=== PATIENT | female | born 1975 | race Hispanic/Latino ===

== ENCOUNTER → 2023-10-17 | Emergency (ER) | payer OTHER ==
[~2023-10-17] VITALS: Ht 160 cm; Wt 90.7 kg
[~2023-10-17] MED LIST: NAPR-1180 PO; ONDA4TAB10 PO
[2023-10-17 19:58] VITALS: BP 148/97; PULSE 87; RESP 19; O2SAT 100
[2023-10-17 20:40] LABS: HCG,QUALITATIVE URINE NEGATIVE (NEGATIVE)
[2023-10-17 20:47] LABS: ADD UA MICROSCOPIC YES; APPEARANCE,URINE CLEAR (CLEAR); BILIRUBIN,URINE NEGATIVE (NEGATIVE); COLOR,URINE YELLOW (YELLOW); GLUCOSE, URINE (UA) >=1000 mg/dL (NEGATIVE); KETONES,URINE 5 mg/dL (NEGATIVE); LEUKOCYTE ESTERASE ,URINE NEGATIVE Leu/uL (NEGATIVE); NITRATE,URINE NEGATIVE (NEGATIVE); OCCULT BLOOD,URINE NEGATIVE (NEGATIVE); PROTEIN,URINE 20 mg/dL (NEGATIVE); UROBILINOGEN,URINE 0.2 mg/dL (0.2-1.0)
[2023-10-17 20:48] LABS: MUCUS,URINE FEW LPF (None Seen); SQUAMOUS EPITHELIAL CELL,UR RARE /HPF (0-2)
[2023-10-17] MEDS: KETOROLAC 30MG VIAL (30MG/ML) IM SCH (22:30)
== END ==
LOC: EDH 19:34 → EDBD 19:34
DX: S00.83XA Contusion of other part of head, initial encounter (principal); E11.9 Type 2 diabetes mellitus without complications; Z79.899 Other long term (current) drug therapy; Z98.890 Other specified postprocedural states; W06.XXXA Fall from bed, initial encounter; Y93.89 Activity, other specified; Y92.89 Other specified places as the place of occurrence of the external cause; Y99.8 Other external cause status
CPT/HCPCS: 99285; 70450; 81001; 81025; 71100; 72125; 96372; J1885